=== PATIENT | female | born 1985 | race Caucasian/White ===

== ENCOUNTER 2016-09-28 21:21 | Emergency (ER) | payer SELFPAY ==
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
[~2016-09-28 21:21] MED LIST: METHADONE PO; NORVASC PO; TRIGLIDE160 M1 PO
== END 2016-09-29 00:20 | disposition home or self-care (01) ==
LOC: CED 21:21
DX: S00.83XA Contusion of other part of head, initial encounter (principal); F17.200 Nicotine dependence, unspecified, uncomplicated; W22.8XXA Striking against or struck by other objects, initial encounter
CPT/HCPCS: 70110; 99283